=== PATIENT | male | born 1985 | race Two or more races ===

== ENCOUNTER 2020-06-09 15:03 | Emergency (ER) | payer MEDICAID, OTHER ==
[~2020-06-09] VITALS: Ht 170.2 cm; Wt 81.6 kg
[2020-06-09 15:08] VITALS: BP 129/95
[2020-06-09] MEDS ORDERED: ACETAMINOPHEN 325 MG TAB PO ONE (15:30)
[2020-06-09] MEDS ORDERED: ONDANSETRON ODT 4 MG TAB PO ONE (15:45)
== END 2020-06-09 15:54 | disposition home or self-care (01) ==
LOC: ER 15:03
DX: U07.1 COVID-19 (principal); R11.0 Nausea
CPT/HCPCS: 71045; 87635; 99284; Q0162